=== PATIENT | female | born 1995 | race African-American/Black ===

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

== ENCOUNTER 2017-03-19 16:12 | Emergency (ER) | payer OTHER ==
[~2017-03-19] VITALS: Ht 165.1 cm; Wt 100.8 kg
[~2017-03-19 16:12] MED LIST changes: +IBUPROFEN600 MG PO; -PRE-NATAL PO
[2017-03-19] MEDS ORDERED: PRE-NATAL PO (16:34)
[2017-03-19] MEDS ORDERED: DEBROX6.5 % AS (16:38)
[2017-03-19] MEDS ORDERED: CIPROFLOXACN750 MG PO (16:38)
[2017-03-19 16:40] VITALS: BP 119/72
== END 2017-03-19 16:40 | disposition home or self-care (01) | DRG 156 ==
LOC: ED 16:12
DX: H61.22 Impacted cerumen, left ear (principal); H92.02 Otalgia, left ear

== ENCOUNTER 2017-03-26 12:00 | Emergency (ER) | payer OTHER ==
[~2017-03-26] VITALS: Ht 165.1 cm; Wt 102.2 kg
[~2017-03-26 12:00] MED LIST changes: +CIPROFLOXACN750 MG PO; +DEBROX6.5 % AS; +PRE-NATAL PO
[2017-03-26] MEDS ORDERED: FIORICET PO (13:19)
[2017-03-26] MEDS ORDERED: ZOFRAN ODT4 MG PO (13:19)
[2017-03-26 13:46] VITALS: BP 116/66
== END 2017-03-26 13:57 | disposition home or self-care (01) | DRG 103 ==
LOC: ED 12:00
DX: G43.909 Migraine, unspecified, not intractable, without status migrainosus (principal); R11.0 Nausea

== ENCOUNTER 2017-05-28 20:23 | Emergency (ER) | payer OTHER ==
[~2017-05-28] VITALS: Ht 165.1 cm; Wt 106.4 kg
[~2017-05-28 20:23] MED LIST changes: +FIORICET PO; +ZOFRAN ODT4 MG PO
[2017-05-28 22:03] LABS: URINE BILIRUBIN - DIPSTICK NEGATIVE (NEGATIVE); URINE BLOOD DIPSTICK NEGATIVE (NEGATIVE); URINE CLARITY CLEAR; URINE COLOR YELLOW; URINE GLUCOSE - DIPSTICK NEGATIVE (NEGATIVE); URINE KETONE NEGATIVE (NEGATIVE); URINE LEUK ESTERASE NEGATIVE (NEGATIVE); URINE NITRITE - DIPSTICK NEGATIVE (Negative); URINE PROTEIN - DIPSTICK NEGATIVE (NEG-TRACE); URINE SPECIFIC GRAVITY 1.025; URINE UROBILINOGEN - DIPSTICK 0.2 E.U./dL (0.2)
[2017-05-28 22:05] LABS: HEMATOCRIT 40.5 % (37.0-47.0); IMMATURE GRANULOCYTES 1.1 % (0.0-1.0); MEAN CELL VOLUME 87.9 fL CALC (80.0-100.0); MEAN CORPUSCULAR HGB 28.2 pG CALC (26.0-32.0); MEAN CORPUSCULAR HGB CONC 32.1 g/L CALC (32.0-36.0); NEUT# 2.26 thou/uL (2.00-7.15); RED BLOOD COUNT 4.61 mill/uL (4.20-5.60); RED CELL DISTRI WIDTH 12.4 % (11.5-15.5)
[2017-05-28 22:10] LABS: ALKALINE PHOSPHATASE 110 u/l (38-126); AMYLASE 57 u/l (30-110); ANION GAP 13 (6-22 (CALC)); BILIRUBIN, TOTAL 0.7 mg/dL (0.0-1.4); BUN 6 mg/dL (7-17); BUN/CREATININE RATIO 8 (12-20 (CALC)); CALCIUM 9.6 mg/dL (8.4-10.2); CARBON DIOXIDE 28 mmol/l (22-30); CHLORIDE 106 mmol/l (95-108); CREATININE 0.7 mg/dL (0.5-1.0); GFR > 60 ML/MIN (>=60 (CALC)); GFR FOR AFR.AMER. > 60 ML/MIN (>=60 (CALC)); GLUCOSE 101 mg/dL (65-105); LIPASE 58 u/l (23-300); SGOT/AST 32 u/l (14-36); SGPT/ALT 42 u/l (9-52); SODIUM 143 mmol/l (137-146); TOTAL PROTEIN 7.2 g/dL (6.3-8.2)
[2017-05-29 00:43] VITALS: BP 133/72
--- NOTE | 2017-05-30 13:22 | NUR ---
Review of vaginal smear from 05/28/17 final showed many G+ cocci in pairs/chains/clusters, no G-diplococci, no N. gonorrhoeae isolated, no trichomonas seen either. Pt presented to ED on 05/28/17 with cc of abdominal pain. Clinical impression: vaginal discharge. Pt received Cipro 500mg PO x 1 dose and Rocephin 500mg IV x 1 dose. Pt was not discharged with any abx. No changes in abx tx needed at this time.
== END 2017-05-29 00:43 | disposition home or self-care (01) | DRG 760 ==
LOC: ED 20:23
PROVIDERS: Emergency Medicine
DX: N89.8 Other specified noninflammatory disorders of vagina (principal); K62.5 Hemorrhage of anus and rectum; R50.9 Fever, unspecified; R10.31 Right lower quadrant pain; R11.2 Nausea with vomiting, unspecified; K59.00 Constipation, unspecified; R30.0 Dysuria

== ENCOUNTER 2017-06-10 21:37 | Emergency (ER) | payer OTHER ==
[~2017-06-10] VITALS: Ht 165.1 cm; Wt 106.2 kg
[2017-06-10 22:34] LABS: URINE BILIRUBIN - DIPSTICK NEGATIVE (NEGATIVE); URINE BLOOD DIPSTICK LARGE (NEGATIVE); URINE COLOR YELLOW; URINE GLUCOSE - DIPSTICK NEGATIVE (NEGATIVE); URINE KETONE NEGATIVE (NEGATIVE); URINE LEUK ESTERASE NEGATIVE (NEGATIVE); URINE NITRITE - DIPSTICK NEGATIVE (Negative); URINE PH 6.5 (4.5-8.0); URINE PROTEIN - DIPSTICK NEGATIVE (NEG-TRACE); URINE SPECIFIC GRAVITY 1.025; URINE UROBILINOGEN - DIPSTICK 0.2 E.U./dL (0.2)
[2017-06-10 22:54] LABS: URINE CLARITY SLIGHT CLOUDY
[2017-06-10 22:56] LABS: URINE MUCUS MODERATE hpf (NONE-FEW); URINE RBC >100 RBC/hpf (0-5); URINE SQUAMOUS EPITHELIAL CELL FEW EPI/hpf (0-FEW); URINE WBC 0-2 WBC/hpf (0-5)
[2017-06-10 22:57] LABS: HEMATOCRIT 38.6 % (37.0-47.0); HEMOGLOBIN 12.3 g/dl (12.0-16.0); IMMATURE GRANULOCYTES 0.3 % (0.0-1.0); MEAN CELL VOLUME 87.1 fL CALC (80.0-100.0); MEAN CORPUSCULAR HGB 27.8 pG CALC (26.0-32.0); MEAN CORPUSCULAR HGB CONC 31.9 g/L CALC (32.0-36.0); NEUT# 2.11 thou/uL (2.00-7.15); RED BLOOD COUNT 4.43 mill/uL (4.20-5.60); RED CELL DISTRI WIDTH 12.4 % (11.5-15.5)
[2017-06-10 23:11] LABS: ALBUMIN 4.1 g/dL (3.2-5.0); ALKALINE PHOSPHATASE 96 u/l (38-126); ANION GAP 16 (6-22 (CALC)); BILIRUBIN, TOTAL 0.5 mg/dL (0.0-1.4); BUN 6 mg/dL (7-17); BUN/CREATININE RATIO 8 (12-20 (CALC)); CALCIUM 9.4 mg/dL (8.4-10.2); CARBON DIOXIDE 26 mmol/l (22-30); CHLORIDE 106 mmol/l (95-108); CREATININE 0.7 mg/dL (0.5-1.0); GFR > 60 ML/MIN (>=60 (CALC)); GFR FOR AFR.AMER. > 60 ML/MIN (>=60 (CALC)); GLUCOSE 99 mg/dL (65-105); POTASSIUM 3.8 mmol/l (3.5-5.1); SGOT/AST 24 u/l (14-36); SGPT/ALT 34 u/l (9-52); SODIUM 144 mmol/l (137-146); TOTAL PROTEIN 7.3 g/dL (6.3-8.2)
[2017-06-10 23:22] LABS: MYOGLOBIN 24 ng/mL (0 - 62)
[2017-06-11 01:03] VITALS: BP 116/58
== END 2017-06-11 01:03 | disposition home or self-care (01) | DRG 313 ==
LOC: ED 21:37
PROVIDERS: Emergency Medicine
DX: R07.89 Other chest pain (principal); D70.9 Neutropenia, unspecified

== ENCOUNTER 2017-08-11 15:55 | Emergency (ER) | payer OTHER ==
[~2017-08-11] VITALS: Ht 165.1 cm; Wt 114.0 kg
[2017-08-11] MEDS ORDERED: VALACYCLOVIR500 MG PO (16:57)
[2017-08-11 17:54] VITALS: BP 117/74
== END 2017-08-11 17:54 | disposition home or self-care (01) | DRG 761 ==
LOC: ED 15:55
DX: N89.8 Other specified noninflammatory disorders of vagina (principal)

== ENCOUNTER 2017-10-12 16:31 | Emergency (ER) | payer OTHER ==
[~2017-10-12] VITALS: Ht 165.1 cm; Wt 109.0 kg
[~2017-10-12 16:31] MED LIST changes: +VALACYCLOVIR500 MG PO
[2017-10-12 17:09] LABS: URINE BILIRUBIN - DIPSTICK NEGATIVE (NEGATIVE); URINE BLOOD DIPSTICK NEGATIVE (NEGATIVE); URINE COLOR YELLOW; URINE GLUCOSE - DIPSTICK NEGATIVE (NEGATIVE); URINE KETONE NEGATIVE (NEGATIVE); URINE LEUK ESTERASE NEGATIVE (Negative); URINE NITRITE - DIPSTICK NEGATIVE (Negative); URINE PROTEIN - DIPSTICK NEGATIVE (NEG-TRACE); URINE UROBILINOGEN - DIPSTICK 0.2 E.U./dL (0.2)
[2017-10-12 17:10] LABS: URINE CLARITY CLEAR
[2017-10-12] MEDS ORDERED: LEVAQUIN500 MG PO (17:36)
[2017-10-12] MEDS ORDERED: PYRIDIUM200 MG PO (17:36)
[2017-10-12 17:42] VITALS: BP 142/80
== END 2017-10-12 17:40 | disposition home or self-care (01) | DRG 203 ==
LOC: ED 16:31
PROVIDERS: Emergency Medicine
DX: J40 Bronchitis, not specified as acute or chronic (principal); N34.2 Other urethritis; R50.9 Fever, unspecified; R05 Cough; R30.0 Dysuria; R10.9 Unspecified abdominal pain

== ENCOUNTER 2017-11-12 22:08 | Emergency (ER) | payer OTHER ==
[~2017-11-12] VITALS: Ht 165.1 cm; Wt 106.8 kg
[~2017-11-12 22:08] MED LIST changes: +LEVAQUIN500 MG PO; +PYRIDIUM200 MG PO
[2017-11-12 23:02] LABS: HEMATOCRIT 37.9 % (37.0-47.0); HEMOGLOBIN 12.2 g/dl (12.0-16.0); IMMATURE GRANULOCYTES 0.5 % (0.0-1.0); MEAN CELL VOLUME 87.9 fL CALC (80.0-100.0); MEAN CORPUSCULAR HGB 28.3 pG CALC (26.0-32.0); MEAN CORPUSCULAR HGB CONC 32.2 g/L CALC (32.0-36.0); NEUT# 3.98 thou/uL (2.00-7.15); RED BLOOD COUNT 4.31 mill/uL (4.20-5.60); RED CELL DISTRI WIDTH 12.6 % (11.5-15.5)
[2017-11-12 23:14] LABS: ANION GAP 16 (6-22 (CALC)); BUN 10 mg/dL (7-17); BUN/CREATININE RATIO 12 (12-20 (CALC)); CARBON DIOXIDE 27 mmol/l (22-30); CHLORIDE 104 mmol/l (95-108); CREATININE 0.8 mg/dL (0.5-1.0); GFR > 60 ML/MIN (>=60 (CALC)); GFR FOR AFR.AMER. > 60 ML/MIN (>=60 (CALC)); POTASSIUM 3.6 mmol/l (3.5-5.1); SODIUM 144 mmol/l (137-146)
[2017-11-12 23:27] LABS: URINE BILIRUBIN - DIPSTICK NEGATIVE (NEGATIVE); URINE BLOOD DIPSTICK LARGE (NEGATIVE); URINE COLOR YELLOW; URINE GLUCOSE - DIPSTICK NEGATIVE (NEGATIVE); URINE KETONE NEGATIVE (NEGATIVE); URINE LEUK ESTERASE NEGATIVE (NEGATIVE); URINE NITRITE - DIPSTICK NEGATIVE (Negative); URINE PH 6.5 (4.5-8.0); URINE PROTEIN - DIPSTICK NEGATIVE (NEG-TRACE); URINE SPECIFIC GRAVITY 1.025; URINE UROBILINOGEN - DIPSTICK 0.2 E.U./dL (0.2)
[2017-11-12 23:28] LABS: URINE CLARITY SL CLOUDY
[2017-11-12 23:33] LABS: URINE BACTERIA FEW hpf; URINE MUCUS FEW hpf (NONE-FEW); URINE RBC 50-100 RBC/hpf (0-5); URINE SQUAMOUS EPITHELIAL CELL FEW EPI/hpf (0-FEW)
[2017-11-13 01:57] VITALS: BP 129/80
== END 2017-11-13 02:33 | disposition home or self-care (01) | DRG 103 ==
LOC: ED 22:08
PROVIDERS: Family Medicine
DX: G43.909 Migraine, unspecified, not intractable, without status migrainosus (principal)

== ENCOUNTER 2018-01-14 23:45 | Emergency (ER) | payer SELFPAY ==
[~2018-01-14] VITALS: Ht 165.1 cm; Wt 260.0 kg
[2018-01-15 00:11] LABS: HEMATOCRIT 38.5 % (37.0-47.0); HEMOGLOBIN 12.2 g/dl (12.0-16.0); IMMATURE GRANULOCYTES 0.5 % (0.0-1.0); MEAN CELL VOLUME 88.3 fL CALC (80.0-100.0); MEAN CORPUSCULAR HGB CONC 31.7 g/L CALC (32.0-36.0); NEUT# 2.95 thou/uL (2.00-7.15); RED BLOOD COUNT 4.36 mill/uL (4.20-5.60); RED CELL DISTRI WIDTH 12.8 % (11.5-15.5)
[2018-01-15 00:21] LABS: ALBUMIN 4.2 g/dL (3.2-5.0); ALKALINE PHOSPHATASE 102 u/l (38-126); ANION GAP 12 (6-22 (CALC)); BILIRUBIN, TOTAL 0.4 mg/dL (0.0-1.4); BUN 5 mg/dL (7-17); BUN/CREATININE RATIO 7 (12-20 (CALC)); CARBON DIOXIDE 27 mmol/l (22-30); CHLORIDE 103 mmol/l (95-108); CREATININE 0.7 mg/dL (0.5-1.0); GFR > 60 ML/MIN (>=60 (CALC)); GFR FOR AFR.AMER. > 60 ML/MIN (>=60 (CALC)); POTASSIUM 3.8 mmol/l (3.5-5.1); SGOT/AST 31 u/l (14-36); SGPT/ALT 43 u/l (9-52); SODIUM 139 mmol/l (137-146)
[2018-01-15 00:37] LABS: BETA-HCG, QUANT(RESULT NUMBER) 1709 mIU/mL
[2018-01-15 00:41] LABS: URINE BILIRUBIN - DIPSTICK NEGATIVE (NEGATIVE); URINE BLOOD DIPSTICK LARGE (NEGATIVE); URINE COLOR RED; URINE GLUCOSE - DIPSTICK NEGATIVE (NEGATIVE); URINE KETONE NEGATIVE (NEGATIVE); URINE LEUK ESTERASE TRACE (NEGATIVE); URINE NITRITE - DIPSTICK NEGATIVE (Negative); URINE PH 6.5 (4.5-8.0); URINE PROTEIN - DIPSTICK 30 mg/dL (NEG-TRACE); URINE UROBILINOGEN - DIPSTICK 0.2 E.U./dL (0.2)
[2018-01-15 00:45] LABS: URINE CLARITY TURBID
[2018-01-15 00:54] LABS: URINE RBC TNTC RBC/hpf (0-5)
[2018-01-15 00:55] LABS: URINE BACTERIA RARE hpf; URINE SQUAMOUS EPITHELIAL CELL FEW EPI/hpf (0-FEW); URINE WBC 0-2 WBC/hpf (0-5)
[2018-01-15 01:22] VITALS: BP 118/70
== END 2018-01-15 00:11 | disposition home or self-care (01) | DRG 778 ==
LOC: ED 23:45
PROVIDERS: Emergency Medicine
DX: O20.0 Threatened abortion (principal); Z3A.01 Less than 8 weeks gestation of pregnancy

== ENCOUNTER 2018-08-21 12:31 | Emergency (ER) | payer SELFPAY ==
[~2018-08-21] VITALS: Ht 165.1 cm; Wt 110.5 kg
[2018-08-21 13:29] LABS: URINE BILIRUBIN - DIPSTICK NEGATIVE (NEGATIVE); URINE BLOOD DIPSTICK NEGATIVE (NEGATIVE); URINE COLOR YELLOW; URINE GLUCOSE - DIPSTICK NEGATIVE (NEGATIVE); URINE KETONE NEGATIVE (NEGATIVE); URINE NITRITE - DIPSTICK NEGATIVE (Negative); URINE PROTEIN - DIPSTICK NEGATIVE (NEG-TRACE); URINE SPECIFIC GRAVITY 1.025; URINE UROBILINOGEN - DIPSTICK 0.2 E.U./dL (0.2)
[2018-08-21 13:34] LABS: URINE LEUK ESTERASE SMALL (NEGATIVE)
[2018-08-21 13:35] LABS: URINE BACTERIA FEW hpf; URINE EPITHELIAL CELLS MODERATE EPI/hpf (0-FEW)
[2018-08-21] MEDS ORDERED: DOXYCYC MONO100 M1 PO (14:17)
[2018-08-21] MEDS ORDERED: CLEOCIN300 MG PO (14:17)
[2018-08-21 14:30] VITALS: BP 133/86
== END 2018-08-21 15:00 | disposition home or self-care (01) | DRG 758 ==
LOC: ED 12:31
DX: N76.0 Acute vaginitis (principal); N39.0 Urinary tract infection, site not specified

== ENCOUNTER 2018-09-20 22:45 | Emergency (ER) | payer OTHER ==
[~2018-09-20] VITALS: Ht 165.1 cm; Wt 111.4 kg
[~2018-09-20 22:45] MED LIST changes: +CLEOCIN300 MG PO; +DOXYCYC MONO100 M1 PO
[2018-09-20 23:56] LABS: URINE BILIRUBIN - DIPSTICK NEGATIVE (NEGATIVE); URINE BLOOD DIPSTICK SMALL (NEGATIVE); URINE COLOR YELLOW; URINE GLUCOSE - DIPSTICK NEGATIVE (NEGATIVE); URINE KETONE TRACE mg/dL (NEGATIVE); URINE LEUK ESTERASE TRACE (NEGATIVE); URINE NITRITE - DIPSTICK NEGATIVE (Negative); URINE PROTEIN - DIPSTICK TRACE mg/dL (NEG-TRACE); URINE UROBILINOGEN - DIPSTICK 0.2 E.U./dL (0.2)
[2018-09-21 00:04] LABS: URINE BACTERIA FEW hpf; URINE SQUAMOUS EPITHELIAL CELL MANY EPI/hpf (0-FEW)
[2018-09-21] MEDS ORDERED: DIFLUCAN150 MG PO (00:16)
[2018-09-21 00:37] VITALS: BP 139/83
== END 2018-09-21 00:37 | disposition home or self-care (01) ==
LOC: ED 22:45
PROVIDERS: Family Medicine
DX: B37.3 Candidiasis of vulva and vagina (principal); R30.0 Dysuria; R35.0 Frequency of micturition

== ENCOUNTER 2019-04-21 22:48 | Emergency (ER) | payer OTHER ==
[~2019-04-21] VITALS: Ht 165.1 cm; Wt 113.6 kg
[~2019-04-21 22:48] MED LIST changes: +DIFLUCAN150 MG PO
[2019-04-22 00:33] LABS: URINE BILIRUBIN - DIPSTICK NEGATIVE (NEGATIVE); URINE BLOOD DIPSTICK NEGATIVE (NEGATIVE); URINE COLOR YELLOW; URINE GLUCOSE - DIPSTICK NEGATIVE (NEGATIVE); URINE KETONE TRACE mg/dL (NEGATIVE); URINE LEUK ESTERASE NEGATIVE (NEGATIVE); URINE NITRITE - DIPSTICK NEGATIVE (Negative); URINE PH 6.5 (4.5-8.0); URINE PROTEIN - DIPSTICK TRACE mg/dL (NEG-TRACE)
[2019-04-22 01:38] LABS: HEMATOCRIT 36.4 % (37.0-47.0); HEMOGLOBIN 11.7 g/dl (12.0-16.0); IMMATURE GRANULOCYTES 0.2 % (0.0-5.0); MEAN CELL VOLUME 85.4 fL CALC (80.0-100.0); MEAN CORPUSCULAR HGB 27.5 pG CALC (26.0-32.0); MEAN CORPUSCULAR HGB CONC 32.1 g/L CALC (32.0-36.0); NEUT# 2.85 thou/uL (2.00-7.15); RED BLOOD COUNT 4.26 mill/uL (4.20-5.60); RED CELL DISTRI WIDTH 12.5 % (11.5-15.5)
[2019-04-22 01:57] LABS: ALBUMIN 4.2 g/dL (3.2-5.0); ALKALINE PHOSPHATASE 108 u/l (38-126); ANION GAP 14 (6-22 (CALC)); BUN 14 mg/dL (7-17); BUN/CREATININE RATIO 18 (12-20 (CALC)); CARBON DIOXIDE 25 mmol/l (22-30); CHLORIDE 104 mmol/l (95-108); CREATININE 0.7 mg/dL (0.5-1.0); GFR > 60 ML/MIN (>=60 (CALC)); GFR FOR AFR.AMER. > 60 ML/MIN (>=60 (CALC)); POTASSIUM 4.5 mmol/l (3.5-5.1); SGOT/AST 27 u/l (14-36); SODIUM 139 mmol/l (137-146); TOTAL PROTEIN 7.5 g/dL (6.3-8.2)
[2019-04-22 02:02] LABS: BILIRUBIN, TOTAL 0.6 mg/dL (0.0-1.4)
[2019-04-22] MEDS ORDERED: CIPROFLOXACN500 MG PO (03:01)
[2019-04-22 03:45] VITALS: BP 140/89
== END 2019-04-22 03:45 | disposition home or self-care (01) ==
LOC: ED 22:48
PROVIDERS: Emergency Medicine
DX: N34.2 Other urethritis (principal); R10.30 Lower abdominal pain, unspecified

== ENCOUNTER 2019-07-29 | Emergency (ER) | payer OTHER ==
[~2019-07-29] MED LIST changes: +CIPROFLOXACN500 MG PO
[2019-07-29 21:48] LABS: HEMATOCRIT 38.2 % (37.0-47.0); HEMOGLOBIN 12.2 g/dl (12.0-16.0); IMMATURE GRANULOCYTES 0.4 % (0.0-5.0); MEAN CELL VOLUME 86.8 fL CALC (80.0-100.0); MEAN CORPUSCULAR HGB 27.7 pG CALC (26.0-32.0); MEAN CORPUSCULAR HGB CONC 31.9 g/L CALC (32.0-36.0); NEUT# 2.78 thou/uL (2.00-7.15); RED BLOOD COUNT 4.4 mill/uL (4.20-5.60); RED CELL DISTRI WIDTH 12.5 % (11.5-15.5)
[2019-07-29 21:55] LABS: BARBITURATES NEGATIVE (NEGATIVE); COCAINE NEGATIVE (NEGATIVE); METHADONE NEGATIVE (NEGATIVE); OXCYCODONE NEGATIVE (NEGATIVE); TETRAHYDROCANNABIONOL NEGATIVE (NEGATIVE); TRICYLIC ANTIDEPRESSANTS NEGATIVE (NEGATIVE)
[2019-07-29 22:01] LABS: ALBUMIN 4.2 g/dL (3.2-5.0); ALKALINE PHOSPHATASE 109 u/l (38-126); ANION GAP 13 (6-22 (CALC)); BILIRUBIN, TOTAL 0.4 mg/dL (0.0-1.4); BUN 7 mg/dL (7-17); BUN/CREATININE RATIO 10 (12-20 (CALC)); CARBON DIOXIDE 28 mmol/l (22-30); CHLORIDE 104 mmol/l (95-108); CREATININE 0.7 mg/dL (0.5-1.0); ETHYL ALCOHOL 0 mg/dl (0-30); GFR > 60 ML/MIN (>=60 (CALC)); GFR FOR AFR.AMER. > 60 ML/MIN (>=60 (CALC)); POTASSIUM 3.7 mmol/l (3.5-5.1); SGOT/AST 24 u/l (14-36); SODIUM 141 mmol/l (137-146); TOTAL PROTEIN 7.8 g/dL (6.3-8.2)
== END 2019-07-29 22:40 | disposition home or self-care (01) ==
PROVIDERS: Emergency Medicine
DX: G40.909 Epilepsy, unspecified, not intractable, without status epilepticus (principal)

== ENCOUNTER 2019-08-11 | Emergency (ER) | payer OTHER ==
[2019-08-11] MEDS ORDERED: KEPPRA750 M2 PO (04:39)
[2019-08-11 05:12] LABS: HEMATOCRIT 37.9 % (37.0-47.0); HEMOGLOBIN 11.9 g/dl (12.0-16.0); IMMATURE GRANULOCYTES 0.9 % (0.0-5.0); MEAN CELL VOLUME 87.5 fL CALC (80.0-100.0); MEAN CORPUSCULAR HGB 27.5 pG CALC (26.0-32.0); MEAN CORPUSCULAR HGB CONC 31.4 g/L CALC (32.0-36.0); NEUT# 3.06 thou/uL (2.00-7.15); RED BLOOD COUNT 4.33 mill/uL (4.20-5.60); RED CELL DISTRI WIDTH 12.7 % (11.5-15.5)
[2019-08-11 05:15] LABS: URINE BILIRUBIN - DIPSTICK NEGATIVE (NEGATIVE); URINE BLOOD DIPSTICK NEGATIVE (NEGATIVE); URINE COLOR YELLOW; URINE GLUCOSE - DIPSTICK NEGATIVE (NEGATIVE); URINE KETONE NEGATIVE (NEGATIVE); URINE NITRITE - DIPSTICK NEGATIVE (Negative); URINE PROTEIN - DIPSTICK TRACE mg/dL (NEG-TRACE); URINE SPECIFIC GRAVITY 1.015; URINE UROBILINOGEN - DIPSTICK 0.2 E.U./dL (0.2)
[2019-08-11 05:20] LABS: URINE LEUK ESTERASE TRACE (NEGATIVE)
[2019-08-11 05:23] LABS: ALBUMIN 4.2 g/dL (3.2-5.0); ALKALINE PHOSPHATASE 115 u/l (38-126); ANION GAP 13 (6-22 (CALC)); BILIRUBIN, TOTAL 0.4 mg/dL (0.0-1.4); BUN 9 mg/dL (7-17); BUN/CREATININE RATIO 11 (12-20 (CALC)); CARBON DIOXIDE 25 mmol/l (22-30); CHLORIDE 105 mmol/l (95-108); CREATININE 0.8 mg/dL (0.5-1.0); GFR > 60 ML/MIN (>=60 (CALC)); GFR FOR AFR.AMER. > 60 ML/MIN (>=60 (CALC)); LIPASE 56 u/l (23-300); POTASSIUM 3.8 mmol/l (3.5-5.1); SGOT/AST 21 u/l (14-36); SODIUM 140 mmol/l (137-146); TOTAL PROTEIN 7.9 g/dL (6.3-8.2)
[2019-08-11] MEDS ORDERED: AMOXICILLIN500 MG PO (06:09)
== END 2019-08-11 06:30 | disposition home or self-care (01) ==
DX: J02.0 Streptococcal pharyngitis (principal); R07.9 Chest pain, unspecified

== ENCOUNTER 2019-08-17 | Emergency (ER) | payer OTHER ==
[~2019-08-17] MED LIST changes: +AMOXICILLIN500 MG PO; +KEPPRA750 M2 PO
[2019-08-17 23:31] LABS: HEMATOCRIT 37.8 % (37.0-47.0); HEMOGLOBIN 11.9 g/dl (12.0-16.0); IMMATURE GRANULOCYTES 0.8 % (0.0-5.0); MEAN CELL VOLUME 86.9 fL CALC (80.0-100.0); MEAN CORPUSCULAR HGB 27.4 pG CALC (26.0-32.0); MEAN CORPUSCULAR HGB CONC 31.5 g/L CALC (32.0-36.0); NEUT# 2.89 thou/uL (2.00-7.15); RED BLOOD COUNT 4.35 mill/uL (4.20-5.60); RED CELL DISTRI WIDTH 12.6 % (11.5-15.5)
[2019-08-17 23:45] LABS: URINE BILIRUBIN - DIPSTICK NEGATIVE (NEGATIVE); URINE COLOR YELLOW; URINE GLUCOSE - DIPSTICK NEGATIVE (NEGATIVE); URINE KETONE NEGATIVE (NEGATIVE); URINE NITRITE - DIPSTICK NEGATIVE (Negative); URINE PH 7.5 (4.5-8.0); URINE PROTEIN - DIPSTICK NEGATIVE (NEG-TRACE); URINE SPECIFIC GRAVITY 1.015; URINE UROBILINOGEN - DIPSTICK 0.2 E.U./dL (0.2)
[2019-08-17 23:51] LABS: URINE BLOOD DIPSTICK NEGATIVE (NEGATIVE); URINE LEUK ESTERASE MODERATE (NEGATIVE)
[2019-08-17 23:53] LABS: ALBUMIN 3.6 g/dL (3.2-5.0); ALKALINE PHOSPHATASE 112 u/l (38-126); ANION GAP 11 (6-22 (CALC)); BILIRUBIN, TOTAL 0.5 mg/dL (0.0-1.4); BUN 3 mg/dL (7-17); BUN/CREATININE RATIO 5 (12-20 (CALC)); CARBON DIOXIDE 24 mmol/l (22-30); CHLORIDE 106 mmol/l (95-108); CREATININE 0.7 mg/dL (0.5-1.0); GFR > 60 ML/MIN (>=60 (CALC)); GFR FOR AFR.AMER. > 60 ML/MIN (>=60 (CALC)); POTASSIUM 3.7 mmol/l (3.5-5.1); SGOT/AST 22 u/l (14-36); SODIUM 137 mmol/l (137-146); TOTAL PROTEIN 6.9 g/dL (6.3-8.2); URINE BACTERIA MODERATE hpf; URINE EPITHELIAL CELLS FEW EPI/hpf (0-FEW)
[2019-08-17 23:57] LABS: BARBITURATES NEGATIVE (NEGATIVE); COCAINE NEGATIVE (NEGATIVE); METHADONE NEGATIVE (NEGATIVE); OXCYCODONE NEGATIVE (NEGATIVE); TETRAHYDROCANNABIONOL NEGATIVE (NEGATIVE); TRICYLIC ANTIDEPRESSANTS NEGATIVE (NEGATIVE)
[2019-08-18] MEDS ORDERED: CIPROFLOXACN500 MG PO (01:05)
== END 2019-08-18 01:18 | disposition home or self-care (01) ==
PROVIDERS: Emergency Medicine
DX: G40.909 Epilepsy, unspecified, not intractable, without status epilepticus (principal); N39.0 Urinary tract infection, site not specified

== ENCOUNTER 2019-12-05 | Emergency (ER) | payer OTHER ==
[2019-12-05 15:50] LABS: HEMATOCRIT 35.5 % (37.0-47.0); HEMOGLOBIN 11.2 g/dl (12.0-16.0); IMMATURE GRANULOCYTES 0.4 % (0.0-5.0); MEAN CORPUSCULAR HGB 27.1 pG CALC (26.0-32.0); MEAN CORPUSCULAR HGB CONC 31.5 g/dL CAL (32.0-36.0); NEUT# 2.87 thou/uL (2.00-7.15); RED BLOOD COUNT 4.13 mill/uL (4.20-5.60); RED CELL DISTRI WIDTH 12.6 % (11.5-15.5)
[2019-12-05 16:12] LABS: ANION GAP 10 (6-22 (CALC)); BUN 5 mg/dL (7-17); BUN/CREATININE RATIO 7 (12-20 (CALC)); CARBON DIOXIDE 25 mmol/l (22-30); CHLORIDE 105 mmol/l (95-108); CREATININE 0.7 mg/dL (0.5-1.0); GFR > 60 ML/MIN (>=60 (CALC)); GFR FOR AFR.AMER. > 60 ML/MIN (>=60 (CALC)); POTASSIUM 3.4 mmol/l (3.5-5.1); SODIUM 137 mmol/l (137-146)
== END 2019-12-05 17:33 | disposition home or self-care (01) ==
PROVIDERS: Family Medicine
DX: O46.90 Antepartum hemorrhage, unspecified, unspecified trimester (principal); Z3A.00 Weeks of gestation of pregnancy not specified

== ENCOUNTER 2019-12-14 | Emergency (ER) | payer OTHER ==
[2019-12-14 18:43] LABS: HEMATOCRIT 36.6 % (37.0-47.0); HEMOGLOBIN 11.8 g/dl (12.0-16.0); IMMATURE GRANULOCYTES 0.6 % (0.0-5.0); MEAN CELL VOLUME 84.3 fL CALC (80.0-100.0); MEAN CORPUSCULAR HGB 27.2 pG CALC (26.0-32.0); MEAN CORPUSCULAR HGB CONC 32.2 g/dL CAL (32.0-36.0); NEUT# 3.08 thou/uL (2.00-7.15); RED BLOOD COUNT 4.34 mill/uL (4.20-5.60); RED CELL DISTRI WIDTH 12.4 % (11.5-15.5)
[2019-12-14 18:46] LABS: URINE BILIRUBIN - DIPSTICK NEGATIVE (NEGATIVE); URINE BLOOD DIPSTICK NEGATIVE (NEGATIVE); URINE COLOR YELLOW; URINE GLUCOSE - DIPSTICK NEGATIVE (NEGATIVE); URINE KETONE NEGATIVE (NEGATIVE); URINE LEUK ESTERASE NEGATIVE (NEGATIVE); URINE NITRITE - DIPSTICK NEGATIVE (Negative); URINE PH 6.5 (4.5-8.0); URINE PROTEIN - DIPSTICK NEGATIVE (NEG-TRACE); URINE UROBILINOGEN - DIPSTICK 0.2 E.U./dL (0.2)
[2019-12-14 18:58] LABS: ALKALINE PHOSPHATASE 113 u/l (38-126); ANION GAP 13 (6-22 (CALC)); BILIRUBIN, TOTAL 0.6 mg/dL (0.0-1.4); BUN 5 mg/dL (7-17); BUN/CREATININE RATIO 8 (12-20 (CALC)); CARBON DIOXIDE 23 mmol/l (22-30); CHLORIDE 104 mmol/l (95-108); CREATININE 0.7 mg/dL (0.5-1.0); GFR > 60 ML/MIN (>=60 (CALC)); GFR FOR AFR.AMER. > 60 ML/MIN (>=60 (CALC)); LIPASE 56 u/l (23-300); POTASSIUM 3.8 mmol/l (3.5-5.1); SGOT/AST 26 u/l (14-36); SODIUM 136 mmol/l (137-146); TOTAL PROTEIN 7.7 g/dL (6.3-8.2)
[2019-12-14 19:05] LABS: ALBUMIN 4.4 g/dL (3.2-5.0)
[2019-12-14 19:15] LABS: BETA-HCG, QUANT(RESULT NUMBER) 1528 mIU/mL
== END 2019-12-14 22:12 | disposition home or self-care (01) ==
PROVIDERS: Family Medicine
DX: O20.0 Threatened abortion (principal); Z3A.00 Weeks of gestation of pregnancy not specified

== ENCOUNTER 2019-12-15 | Emergency (ER) | payer OTHER ==
[2019-12-15 08:33] LABS: HEMATOCRIT 38.4 % (37.0-47.0); HEMOGLOBIN 12.1 g/dl (12.0-16.0); IMMATURE GRANULOCYTES 0.7 % (0.0-5.0); MEAN CELL VOLUME 87.3 fL CALC (80.0-100.0); MEAN CORPUSCULAR HGB 27.5 pG CALC (26.0-32.0); MEAN CORPUSCULAR HGB CONC 31.5 g/dL CAL (32.0-36.0); NEUT# 3.01 thou/uL (2.00-7.15); RED BLOOD COUNT 4.4 mill/uL (4.20-5.60); RED CELL DISTRI WIDTH 12.6 % (11.5-15.5); URINE BILIRUBIN - DIPSTICK NEGATIVE (NEGATIVE); URINE BLOOD DIPSTICK LARGE (NEGATIVE); URINE COLOR YELLOW; URINE GLUCOSE - DIPSTICK NEGATIVE (NEGATIVE); URINE KETONE NEGATIVE (NEGATIVE); URINE LEUK ESTERASE NEGATIVE (NEGATIVE); URINE NITRITE - DIPSTICK NEGATIVE (Negative); URINE PROTEIN - DIPSTICK NEGATIVE (NEG-TRACE); URINE SPECIFIC GRAVITY >=1.030; URINE UROBILINOGEN - DIPSTICK 0.2 E.U./dL (0.2)
[2019-12-15 08:52] LABS: URINE SQUAMOUS EPITHELIAL CELL FEW EPI/hpf (0-FEW)
[2019-12-15 09:03] LABS: ALBUMIN 4.2 g/dL (3.2-5.0); ALKALINE PHOSPHATASE 113 u/l (38-126); ANION GAP 13 (6-22 (CALC)); BILIRUBIN, TOTAL 0.6 mg/dL (0.0-1.4); BUN 8 mg/dL (7-17); BUN/CREATININE RATIO 10 (12-20 (CALC)); CARBON DIOXIDE 25 mmol/l (22-30); CHLORIDE 102 mmol/l (95-108); CREATININE 0.8 mg/dL (0.5-1.0); GFR > 60 ML/MIN (>=60 (CALC)); GFR FOR AFR.AMER. > 60 ML/MIN (>=60 (CALC)); LIPASE 65 u/l (23-300); POTASSIUM 3.8 mmol/l (3.5-5.1); SGOT/AST 26 u/l (14-36); SODIUM 136 mmol/l (137-146); TOTAL PROTEIN 7.5 g/dL (6.3-8.2)
[2019-12-15 09:20] LABS: BETA-HCG, QUANT(RESULT NUMBER) 1592 mIU/mL
== END 2019-12-15 11:21 | disposition home or self-care (01) ==
PROVIDERS: Family Medicine
DX: O26.891 Other specified pregnancy related conditions, first trimester (principal); R10.31 Right lower quadrant pain; Z3A.01 Less than 8 weeks gestation of pregnancy

== ENCOUNTER 2020-04-13 12:30 | Emergency (ER) | payer OTHER ==
[~2020-04-13] VITALS: Ht 165.1 cm; Wt 115.9 kg
[2020-04-13 15:06] LABS: URINE BILIRUBIN - DIPSTICK NEGATIVE (NEGATIVE); URINE BLOOD DIPSTICK NEGATIVE (NEGATIVE); URINE COLOR YELLOW; URINE GLUCOSE - DIPSTICK NEGATIVE (NEGATIVE); URINE KETONE NEGATIVE (NEGATIVE); URINE NITRITE - DIPSTICK NEGATIVE (Negative); URINE PROTEIN - DIPSTICK NEGATIVE (NEG-TRACE); URINE UROBILINOGEN - DIPSTICK 0.2 E.U./dL (0.2)
[2020-04-13 15:12] LABS: URINE LEUK ESTERASE SMALL (NEGATIVE)
[2020-04-13 15:21] LABS: URINE RBC 0-2 RBC/hpf (0-5); URINE SQUAMOUS EPITHELIAL CELL FEW EPI/hpf (0-FEW)
[2020-04-13] MEDS ORDERED: DOXYCYCL HYC100 M4 PO (16:14)
[2020-04-13 17:53] VITALS: BP 141/86
== END 2020-04-13 17:53 | disposition home or self-care (01) ==
LOC: ED 12:30
PROVIDERS: Student in an Organized Health Care Education/Training Program
DX: N39.0 Urinary tract infection, site not specified (principal); N89.8 Other specified noninflammatory disorders of vagina

== ENCOUNTER 2020-10-07 16:29 | Emergency (ER) | payer OTHER ==
[~2020-10-07] VITALS: Ht 165.1 cm; Wt 113.6 kg
[~2020-10-07 16:29] MED LIST changes: +DOXYCYCL HYC100 M4 PO
[2020-10-07] MEDS ORDERED: TOPIRAMATE100 MG PO (17:00)
[2020-10-07 17:08] LABS: URINE BILIRUBIN - DIPSTICK NEGATIVE (NEGATIVE); URINE BLOOD DIPSTICK NEGATIVE (NEGATIVE); URINE CLARITY CLEAR; URINE COLOR YELLOW; URINE GLUCOSE - DIPSTICK NEGATIVE (NEGATIVE); URINE KETONE NEGATIVE (NEGATIVE); URINE LEUK ESTERASE NEGATIVE (Negative); URINE NITRITE - DIPSTICK NEGATIVE (Negative); URINE PROTEIN - DIPSTICK NEGATIVE (NEG-TRACE); URINE SPECIFIC GRAVITY 1.025; URINE UROBILINOGEN - DIPSTICK 0.2 E.U./dL (0.2)
[2020-10-07] MEDS ORDERED: KEFLEX500 MG PO (17:41)
[2020-10-07] MEDS ORDERED: PYRIDIUM200 MG PO (17:42)
[2020-10-07 17:57] VITALS: BP 154/78
== END 2020-10-07 18:09 | disposition home or self-care (01) ==
LOC: ED 16:29
PROVIDERS: Emergency Medicine
DX: R30.0 Dysuria (principal); G40.909 Epilepsy, unspecified, not intractable, without status epilepticus; Z87.440 Personal history of urinary (tract) infections

== ENCOUNTER 2020-10-09 16:46 | Emergency (ER) | payer OTHER ==
[~2020-10-09 16:46] MED LIST changes: +TOPIRAMATE100 MG PO
== END 2020-10-09 17:35 | disposition left against medical advice (07) ==
LOC: ED 16:46 → LWOBS 17:34
DX: Z91.19 Patient's noncompliance with other medical treatment and regimen (principal)

== ENCOUNTER 2020-10-15 08:00 | Emergency (ER) | payer OTHER ==
[~2020-10-15] VITALS: Ht 165.1 cm; Wt 115.0 kg
[2020-10-15 08:28] LABS: HEMATOCRIT 37.2 % (37.0-47.0); HEMOGLOBIN 11.6 g/dl (12.0-16.0); IMMATURE GRANULOCYTES 0.5 % (0.0-5.0); MEAN CELL VOLUME 87.1 fL CALC (80.0-100.0); MEAN CORPUSCULAR HGB 27.2 pG CALC (26.0-32.0); MEAN CORPUSCULAR HGB CONC 31.2 g/dL CAL (32.0-36.0); NEUT# 3.66 thou/uL (2.00-7.15); RED BLOOD COUNT 4.27 mill/uL (4.20-5.60); RED CELL DISTRI WIDTH 12.3 % (11.5-15.5)
[2020-10-15 08:45] LABS: ANION GAP 10 (6-22 (CALC)); BUN 10 mg/dL (7-17); BUN/CREATININE RATIO 13 (12-20 (CALC)); CARBON DIOXIDE 28 mmol/l (22-30); CHLORIDE 103 mmol/l (95-108); CREATININE 0.8 mg/dL (0.5-1.0); GFR > 60 ML/MIN (>=60 (CALC)); GFR FOR AFR.AMER. > 60 ML/MIN (>=60 (CALC)); POTASSIUM 3.9 mmol/l (3.5-5.1); SODIUM 137 mmol/l (137-146)
[2020-10-15 13:04] VITALS: BP 96/58
== END 2020-10-15 13:11 | disposition home or self-care (01) ==
LOC: ED 08:00
PROVIDERS: Family Medicine
DX: R07.9 Chest pain, unspecified (principal)

== ENCOUNTER 2021-01-05 06:34 | Emergency (ER) | payer OTHER ==
[~2021-01-05] VITALS: Ht 165.1 cm; Wt 115.5 kg
[2021-01-05] MEDS ORDERED: KEPPRA250 M1 PO (06:52)
[2021-01-05] MEDS ORDERED: KEPPRA1000 MG PO (06:52)
[2021-01-05 07:05] LABS: HEMATOCRIT 37.1 % (37.0-47.0); HEMOGLOBIN 11.6 g/dl (12.0-16.0); IMMATURE GRANULOCYTES 0.3 % (0.0-5.0); MEAN CELL VOLUME 86.9 fL CALC (80.0-100.0); MEAN CORPUSCULAR HGB 27.2 pG CALC (26.0-32.0); MEAN CORPUSCULAR HGB CONC 31.3 g/dL CAL (32.0-36.0); NEUT# 2.42 thou/uL (2.00-7.15); RED BLOOD COUNT 4.27 mill/uL (4.20-5.60); RED CELL DISTRI WIDTH 12.8 % (11.5-15.5)
[2021-01-05 07:13] LABS: ALBUMIN 4.2 g/dL (3.2-5.0); ALKALINE PHOSPHATASE 118 u/l (38-126); ANION GAP 11 (6-22 (CALC)); BILIRUBIN, TOTAL 0.6 mg/dL (0.0-1.4); BUN 10 mg/dL (7-17); BUN/CREATININE RATIO 12 (12-20 (CALC)); CARBON DIOXIDE 27 mmol/l (22-30); CHLORIDE 105 mmol/l (95-108); CREATININE 0.8 mg/dL (0.5-1.0); GFR > 60 ML/MIN (>=60 (CALC)); GFR FOR AFR.AMER. > 60 ML/MIN (>=60 (CALC)); POTASSIUM 3.6 mmol/l (3.5-5.1); SGOT/AST 24 u/l (14-36); SODIUM 139 mmol/l (137-146)
[2021-01-05 08:04] LABS: URINE BILIRUBIN - DIPSTICK NEGATIVE (NEGATIVE); URINE BLOOD DIPSTICK LARGE (NEGATIVE); URINE COLOR YELLOW; URINE GLUCOSE - DIPSTICK NEGATIVE (NEGATIVE); URINE KETONE NEGATIVE (NEGATIVE); URINE LEUK ESTERASE TRACE (NEGATIVE); URINE NITRITE - DIPSTICK NEGATIVE (Negative); URINE PROTEIN - DIPSTICK 30 mg/dL (NEG-TRACE)
[2021-01-05 08:17] LABS: URINE BACTERIA FEW hpf; URINE MUCUS FEW hpf (NONE-FEW); URINE SQUAMOUS EPITHELIAL CELL MODERATE EPI/hpf (0-FEW)
[2021-01-05] MEDS ORDERED: FIORICET PO (10:23)
[2021-01-05 10:40] VITALS: BP 133/79
== END 2021-01-05 10:36 | disposition home or self-care (01) ==
LOC: ED 06:34
PROVIDERS: Family Medicine
DX: R51.9 Headache, unspecified (principal); R01.1 Cardiac murmur, unspecified; I49.3 Ventricular premature depolarization
CPT/HCPCS: A9579

== ENCOUNTER 2021-01-08 22:15 | Observation (INO) | payer OTHER ==
[~2021-01-08] VITALS: Ht 162.6 cm; Wt 117.0 kg
[~2021-01-08 22:15] MED LIST changes: +KEPPRA1000 MG PO; +KEPPRA250 M1 PO
--- NOTE | 2021-01-08 22:19 | NUR ---
MOVED TO ROOM 14 FOR TRIAGE. PHYSICIAN IN ROOM UPON ARRIVAL .
--- NOTE | 2021-01-08 22:20 | NUR ---
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
[2021-01-08 22:57] LABS: HEMATOCRIT 37.8 % (37.0-47.0); HEMOGLOBIN 11.7 g/dl (12.0-16.0); IMMATURE GRANULOCYTES 0.6 % (0.0-5.0); MEAN CELL VOLUME 86.1 fL CALC (80.0-100.0); MEAN CORPUSCULAR HGB 26.7 pG CALC (26.0-32.0); NEUT# 2.6 thou/uL (2.00-7.15); RED BLOOD COUNT 4.39 mill/uL (4.20-5.60); RED CELL DISTRI WIDTH 12.7 % (11.5-15.5)
--- NOTE | 2021-01-08 23:04 | NUR ---
A/OX3 SPEECH IS CLEAR NO FOCAL DEFICITS.
[2021-01-08 23:16] LABS: ALKALINE PHOSPHATASE 98 u/l (38-126); ANION GAP 10 (6-22 (CALC)); BILIRUBIN, TOTAL 0.6 mg/dL (0.0-1.4); BUN 9 mg/dL (7-17); BUN/CREATININE RATIO 11 (12-20 (CALC)); CARBON DIOXIDE 27 mmol/l (22-30); CHLORIDE 104 mmol/l (95-108); CREATININE 0.8 mg/dL (0.5-1.0); ETHYL ALCOHOL 0 mg/dl (0-30); GFR > 60 ML/MIN (>=60 (CALC)); GFR FOR AFR.AMER. > 60 ML/MIN (>=60 (CALC)); LIPASE 61 u/l (23-300); POTASSIUM 3.7 mmol/l (3.5-5.1); SGOT/AST 19 u/l (14-36); SODIUM 137 mmol/l (137-146); TOTAL PROTEIN 7.6 g/dL (6.3-8.2)
[2021-01-08 23:20] LABS: URINE BILIRUBIN - DIPSTICK NEGATIVE (NEGATIVE); URINE BLOOD DIPSTICK NEGATIVE (NEGATIVE); URINE COLOR YELLOW; URINE GLUCOSE - DIPSTICK NEGATIVE (NEGATIVE); URINE KETONE NEGATIVE (NEGATIVE); URINE LEUK ESTERASE NEGATIVE (NEGATIVE); URINE PH 6.5 (4.5-8.0); URINE PROTEIN - DIPSTICK NEGATIVE (NEG-TRACE); URINE UROBILINOGEN - DIPSTICK 0.2 E.U./dL (0.2)
[2021-01-08 23:25] LABS: HCG SERUM/URINE (NEG/POS) NEGATIVE (NEGATIVE); URINE NITRITE - DIPSTICK NEGATIVE (Negative)
--- NOTE | 2021-01-08 23:29 | NUR ---
PT TAKES PO WATER WITH MED WITHOUT DIFF SWALLOWING
[2021-01-08 23:32] LABS: ACT PARTIAL THROMBO TIME 25.9 SECONDS (20.0-32.5); INTERNATIONAL NORMALIZED RATIO 1.1 RATIO (0.7-1.3)
[2021-01-08] MEDS ORDERED: CLEOCIN300 MG PO (23:33)
--- NOTE | 2021-01-08 23:36 | NUR ---
PT DID NOT TKE TODAY'S DOSES OF KEPPRA
--- NOTE | 2021-01-09 00:39 | NUR ---
A/OX3 CLEARE SPEECH NO FOCAL DEFICITS.PHONE REPORT TO NURSE KELLEN ON MS
--- NOTE | 2021-01-09 00:45 | NUR ---
PT TRANSPORTED TO [place] ON TELEMETRY VIA STRETCHER IN STABLE ONNDITIO WITH CLEAR SPEECH AND NO FOCAL DEFICITS
[2021-01-09 00:49] VITALS: BP 124/82
--- NOTE | 2021-01-09 01:41 | NUR ---
RECEIVED REPORT FROM NURSE AG, PATIENT TRANSPORTED BY WHEELCHAIR AT 0050, PATIENT WALKED WITH STEADY GAIT FROM BED TO BATHROOM AND BACK IN BED, NO SLURRING OFF SPEECH NOTED, ALERT ORIENTED X 3, ABLE TO CLOSE OPEN EYES, NO FACIAL DROOPING NOTED, ABLE TO FOLLOW COMMANDS, NO ARM OR LEG DRIFTS NOTED, SALINE LOCK OF RAC G 20 FLUSHED AND CHECKED FOR PATENCY, HOOKED ON TELEMETRY SR 66, LBM 6/7, C/O PAIN ON FLANK AREA AND LOWER ABDOMEN TOLERABLE, PATIENT HAS HISTORY OF SEIZURE BED PADDED, PATIENT ORIENTED TO ROOM AND CALL LIGHT SYSTEM.
--- NOTE | 2021-01-09 03:38 | NUR ---
PATIENT AWAKE AT THIS TIME, WATCHING TV, ALERT ORIENTED X 3, BREATHING UNLABORED, CALL LIGHT AT REACH.
[2021-01-09 04:00] VITALS: BP 131/87
[2021-01-09 07:47] VITALS: BP 153/93
--- NOTE | 2021-01-09 07:47 | NUR ---
PT AMBULATING BACK FROM BATHROOM. STADY GAIT OBSERVED. A&O X4. NO DISTRESS NOTED. CLEAR BREATH SOUNDS HEARD UPON AUSCULTATION. 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 ACTIVE BOWEL SOUNDS HEARD X4 QUADRANTS. PT C/O OF PAIN ON TOP OF HEAD, STATES IT HAS BEEN ONGOING FOR A "COUPLE DAYS" THAT RADIATES TO HER NECK. SPEECH CLEAR, PT ALSO STATES HER EPISODE OF REPORTED "SLURRED" SPEECH HAS RESOLVED. NO FACIAL DROOP NOTED. 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 PT ABLE TO MOVE EXTREMITIES WITH NO DIFFICULTY. INFORMED/EDUCATED ON THE NEED OF ORDERED MRI, PT AGREEABLE. #20 RAC HEALTHY AND PATENT. ASSESSMENT COMPLETED. DISCUSSED POC. CALL LIGHT AND PERSONAL BELONGINGS WITHIN REACH.
[2021-01-09 10:57] VITALS: BP 128/83
--- NOTE | 2021-01-09 12:21 | NUR ---
PT LAYING IN BED. ORDER OBTAINED FOR TYLENOL PRN FOR PAIN, PT OFFERED MEDICATION FOR HEADACHE BUT PT REFUSED AT THIS TIME. PT ALSO REFUSING KEPPRA, EXPLAINED TO THE PT ITS IMPORTANCE PER PT "I WILL TAKE IT WHEN I GET HOME". CLINDAMYCIN GIVEN. VAGINAL SWAB TO BE OBTAINED. CONSENT OBTAINED TO OBTAIN RECORDS FROM [facility] AND FROM DR VILLATORO- [facility] NEUROLOGIST. NO OTHER NEEDS AT THIS TIME. CALL LIGHT WITHIN REACH .
--- NOTE | 2021-01-09 13:06 | NUR ---
PT TAKEN TO MRI VIA WC IN STABLE CONDITION
--- NOTE | 2021-01-09 14:16 | NUR ---
PT ARRIVED VIA WC FROM MRI IN STABLE CONDITION.
[2021-01-09 14:55] VITALS: BP 129/81
--- NOTE | 2021-01-09 17:19 | NUR ---
VAGINAL CULTURE SWAB SAMPLE OBTAINED TO TEST FOR BV (PTS CONCERN). SPECIMEN LABELED, DATED, AND TIMED.
--- NOTE | 2021-01-09 18:06 | NUR ---
PT C/O PAIN. ORDER OBTAINED FOR TRAMADOL. TRAMADOL GIVEN. WILL REASSESS. CALL LIGHT WITHIN REACH.
[2021-01-09 19:00] VITALS: BP 128/70
--- NOTE | 2021-01-09 19:43 | NUR ---
PATIENT RESTING IN BED AT THIS TIME WITH SHEETS UP OVER HER FACE. PATIENT AWAKE ALERT AND ORIENTEDX3. PATIENT STATES THAT HER PAIN LEVEL IS NOW 4 AFTER BEING MEDICATED WITH ULTRAM FOR HEADACHE. SIDERAILS ARE PADDED FOR SEIZURE PRECAUTIONS. NO COMPLAINTS AT THIS TIME. SAFETY PRECAUTIONS REINFORCED. CALL LIGHT IN REACH. WILL CONT TO MONITOR.
--- NOTE | 2021-01-09 20:28 | NUR ---
PATIENT RESTING IN BED AT THIS TIME-REFUSING TO TAKE KEPPRA ORDERED. PATIENT WAS EDUCATED REGUARDING THE USE OF ANTI-SEIZURE MEDS IN PATIENT WITH KNOWN HISTORY OF SEIZURES. STATES THAT SHE IS NOT GOING TO TAKE THE KEPPRA TONIGHT THAT SHE WILL TAKE WHEN SHE GOES HOME. MEND EXAM WAS WNL. TELE MONITOR IN PLACE WITH LAST READING BEING SR-73. LUNGS ARE CLEAR. ABD IS SOFT WITH ACTIVE BS-STATES THAT SHE JUST HAD A BM TONIGHT. DENIES ANY DIFFICULTY WITH URINATION. SIDERAILS PADDED FOR SEIZURE PRECAUTIONS. SAFETY PRECAUTIONS REINFORCED. CALL LIGHT IN REACH. WILL CONT TO MONITOR.
--- NOTE | 2021-01-09 21:00 | NUR ---
SPOKE WITH DR. BLUM AND NOTIFIED THAT PATIENT IS REFUSING TO TAKE HER KEPPRA TONIGHT WELL EALLIER TODAY. PATIENT STATES THAT SHE WOULD LIKE TO BE DISCHARGED TONIGHT. DR. BLUM WILL PUT DISCHARGE ORDERS IN FOR TONIGHT. PATIENT MADE AWARE OF DISCHARGE TONIGHT.
--- NOTE | 2021-01-09 21:45 | NUR ---
IV SITE D/C'ED WITH CATH INTACT. TELE MONITOR REMOVED AND RETURNED TO THE ER. PATIENT DISCHARGE INSTRUCTIONS GIVEN.
--- NOTE | 2021-01-09 21:57 | NUR ---
Discharge instructions given. Patient verbalizes understanding of same. Discharged in stable condition via Wheelchair to Home with family. All belongings sent with pt.
--- NOTE | 2021-01-11 11:09 | NUR ---
NEW RX FOR AMOX 875 PO BID X5 CALLED IN TO [facility] FOR E FAECALIS GENITAL CX SENSITIVE TO AMPICILLIN PER DR BLUM. PT AWARE.
--- NOTE | 2021-01-11 12:48 | NUR ---
PT CALLED ME BACK, SAID SHE WAS FEELING VERY ILL ON CLINDAMYCIN AND EXPERIENCING DIARRHEA, METALLIC TASTE, "BURNING FROM INSIDE", JUST OVERALL NOT FEELING WELL. CLINDAMYCIN HAD BEEN PRESCRIBED AT [facility] ER, AND PT WAS INSTRUCTED TO CONTINUE AT DISCHARGE FROM [facility]. DISCUSSED THIS WITH DR BLUM, PT HAS HAD 6 DAYS CLINDAMYCIN AND THE AMOX WILL COVER GENITAL CX RESULTS. PER DR BLUM, OK FOR PT TO D/C CLINDAMYCIN, TAKE AMOX INSTEAD, ADD PROBIOTICS, AND CHECK FOR CDIFF IF DIARRHEA DOESNT IMPROVE. EXPLAINED TO PT, VERBALIZED UNDERSTANDING.
== END 2021-01-09 21:50 | disposition home or self-care (01) ==
LOC: ED 22:15 → ED-I 01-09 00:04 → ED 01-09 00:25 → MS2 01-09 00:26
PROVIDERS: ADMIT Internal Medicine; ATTEND Internal Medicine
DX: G40.909 Epilepsy, unspecified, not intractable, without status epilepticus (principal); N76.0 Acute vaginitis; T42.6X6A Underdosing of other antiepileptic and sedative-hypnotic drugs, initial encounter; Z91.128 Patient's intentional underdosing of medication regimen for other reason; Z88.8 Allergy status to other drugs, medicaments and biological substances; Z20.822 Contact with and (suspected) exposure to COVID-19
CPT/HCPCS: A9579; G0378; J1953; Q9967

== ENCOUNTER 2021-01-31 22:44 | Emergency (ER) | payer OTHER ==
[~2021-01-31] VITALS: Ht 162.6 cm; Wt 111.0 kg
[2021-01-31 23:20] LABS: HEMATOCRIT 39.1 % (37.0-47.0); HEMOGLOBIN 12.2 g/dl (12.0-16.0); IMMATURE GRANULOCYTES 0.4 % (0.0-5.0); MEAN CELL VOLUME 86.7 fL CALC (80.0-100.0); MEAN CORPUSCULAR HGB 27.1 pG CALC (26.0-32.0); MEAN CORPUSCULAR HGB CONC 31.2 g/dL CAL (32.0-36.0); NEUT# 2.84 thou/uL (2.00-7.15); RED BLOOD COUNT 4.51 mill/uL (4.20-5.60); RED CELL DISTRI WIDTH 12.6 % (11.5-15.5)
[2021-01-31 23:36] LABS: ALKALINE PHOSPHATASE 86 u/l (38-126); ANION GAP 12 (6-22 (CALC)); BILIRUBIN, TOTAL 0.5 mg/dL (0.0-1.4); BUN 8 mg/dL (7-17); BUN/CREATININE RATIO 9 (12-20 (CALC)); CARBON DIOXIDE 28 mmol/l (22-30); CHLORIDE 104 mmol/l (95-108); CREATININE 0.9 mg/dL (0.5-1.0); GFR > 60 ML/MIN (>=60 (CALC)); GFR FOR AFR.AMER. > 60 ML/MIN (>=60 (CALC)); POTASSIUM 3.8 mmol/l (3.5-5.1); SGOT/AST 23 u/l (14-36); SODIUM 141 mmol/l (137-146); TOTAL PROTEIN 7.3 g/dL (6.3-8.2)
[2021-02-01 00:45] VITALS: BP 110/58
== END 2021-02-01 00:45 | disposition home or self-care (01) ==
LOC: ED 22:44
PROVIDERS: Family Medicine
DX: R20.0 Anesthesia of skin (principal); F41.9 Anxiety disorder, unspecified

== ENCOUNTER 2021-02-19 08:54 | Emergency (ER) | payer OTHER ==
[~2021-02-19] VITALS: Ht 162.6 cm; Wt 115.9 kg
[2021-02-19 10:20] LABS: URINE BILIRUBIN - DIPSTICK NEGATIVE (NEGATIVE); URINE BLOOD DIPSTICK NEGATIVE (NEGATIVE); URINE COLOR YELLOW; URINE GLUCOSE - DIPSTICK NEGATIVE (NEGATIVE); URINE KETONE NEGATIVE (NEGATIVE); URINE LEUK ESTERASE TRACE (NEGATIVE); URINE PH 7.5 (4.5-8.0); URINE PROTEIN - DIPSTICK NEGATIVE (NEG-TRACE); URINE UROBILINOGEN - DIPSTICK 0.2 E.U./dL (0.2)
[2021-02-19 10:21] LABS: URINE NITRITE - DIPSTICK NEGATIVE (Negative)
[2021-02-19 10:22] LABS: HEMATOCRIT 36.7 % (37.0-47.0); HEMOGLOBIN 11.6 g/dl (12.0-16.0); IMMATURE GRANULOCYTES 0.3 % (0.0-5.0); MEAN CELL VOLUME 86.2 fL CALC (80.0-100.0); MEAN CORPUSCULAR HGB 27.2 pG CALC (26.0-32.0); MEAN CORPUSCULAR HGB CONC 31.6 g/dL CAL (32.0-36.0); NEUT# 3.23 thou/uL (2.00-7.15); RED BLOOD COUNT 4.26 mill/uL (4.20-5.60); RED CELL DISTRI WIDTH 12.5 % (11.5-15.5)
[2021-02-19 10:40] LABS: ALKALINE PHOSPHATASE 105 u/l (38-126); AMYLASE 79 u/l (30-110); ANION GAP 14 (6-22 (CALC)); BILIRUBIN, TOTAL 0.3 mg/dL (0.0-1.4); BUN 7 mg/dL (7-17); BUN/CREATININE RATIO 10 (12-20 (CALC)); CARBON DIOXIDE 27 mmol/l (22-30); CHLORIDE 102 mmol/l (95-108); CREATININE 0.7 mg/dL (0.5-1.0); GFR > 60 ML/MIN (>=60 (CALC)); GFR FOR AFR.AMER. > 60 ML/MIN (>=60 (CALC)); LIPASE 69 u/l (23-300); POTASSIUM 3.7 mmol/l (3.5-5.1); SGOT/AST 19 u/l (14-36); SODIUM 140 mmol/l (137-146); TOTAL PROTEIN 7.4 g/dL (6.3-8.2)
[2021-02-19 14:15] VITALS: BP 125/76
== END 2021-02-19 14:25 | disposition home or self-care (01) ==
LOC: ED 08:54
PROVIDERS: Emergency Medicine
DX: R07.9 Chest pain, unspecified (principal); R00.1 Bradycardia, unspecified; I49.3 Ventricular premature depolarization; G40.909 Epilepsy, unspecified, not intractable, without status epilepticus; Z82.49 Family history of ischemic heart disease and other diseases of the circulatory system

== ENCOUNTER 2021-03-09 11:35 | Emergency (ER) | payer OTHER ==
[2021-03-09 13:12] LABS: HEMATOCRIT 37.7 % (37.0-47.0); HEMOGLOBIN 11.8 g/dl (12.0-16.0); IMMATURE GRANULOCYTES 0.2 % (0.0-5.0); MEAN CELL VOLUME 86.5 fL CALC (80.0-100.0); MEAN CORPUSCULAR HGB 27.1 pG CALC (26.0-32.0); MEAN CORPUSCULAR HGB CONC 31.3 g/dL CAL (32.0-36.0); NEUT# 2.44 thou/uL (2.00-7.15); RED BLOOD COUNT 4.36 mill/uL (4.20-5.60); RED CELL DISTRI WIDTH 12.3 % (11.5-15.5)
[2021-03-09 13:22] LABS: ALKALINE PHOSPHATASE 90 u/l (38-126); AMYLASE 70 u/l (30-110); ANION GAP 11 (6-22 (CALC)); BUN 7 mg/dL (7-17); BUN/CREATININE RATIO 8 (12-20 (CALC)); CARBON DIOXIDE 26 mmol/l (22-30); CHLORIDE 103 mmol/l (95-108); CREATININE 0.8 mg/dL (0.5-1.0); GFR > 60 ML/MIN (>=60 (CALC)); GFR FOR AFR.AMER. > 60 ML/MIN (>=60 (CALC)); LIPASE 36 u/l (23-300); POTASSIUM 3.6 mmol/l (3.5-5.1); SGOT/AST 22 u/l (14-36); SODIUM 136 mmol/l (137-146); TOTAL PROTEIN 7.5 g/dL (6.3-8.2)
[2021-03-09 13:23] LABS: BILIRUBIN, TOTAL 0.7 mg/dL (0.0-1.4)
[2021-03-09 13:24] LABS: URINE BILIRUBIN - DIPSTICK NEGATIVE (NEGATIVE); URINE BLOOD DIPSTICK NEGATIVE (NEGATIVE); URINE COLOR YELLOW; URINE GLUCOSE - DIPSTICK NEGATIVE (NEGATIVE); URINE KETONE NEGATIVE (NEGATIVE); URINE LEUK ESTERASE NEGATIVE (NEGATIVE); URINE PROTEIN - DIPSTICK NEGATIVE (NEG-TRACE); URINE SPECIFIC GRAVITY 1.025; URINE UROBILINOGEN - DIPSTICK 0.2 E.U./dL (0.2)
[2021-03-09] MEDS ORDERED: LEVETIRACETAM1000 MG PO (13:25)
[2021-03-09] MEDS ORDERED: ESCITALOPRAM OX10 MG PO (13:25)
[2021-03-09] MEDS ORDERED: TOPIRAMATE100 MG PO (13:26)
[2021-03-09] MEDS ORDERED: LEVETIRACETAM250 MG PO (13:26)
[2021-03-09 13:30] LABS: URINE NITRITE - DIPSTICK NEGATIVE (Negative)
[2021-03-09] MEDS ORDERED: ZOFRAN4 MG/TAB PO (13:47)
[2021-03-09 14:25] VITALS: BP 125/82
== END 2021-03-09 14:25 | disposition home or self-care (01) ==
LOC: ED 11:35
DX: R10.11 Right upper quadrant pain (principal)

== ENCOUNTER 2021-06-12 04:35 | Emergency (ER) | payer OTHER ==
[~2021-06-12] VITALS: Ht 154.9 cm; Wt 114.0 kg
[~2021-06-12 04:35] MED LIST changes: +ESCITALOPRAM OX10 MG PO; +LEVETIRACETAM1000 MG PO; +LEVETIRACETAM250 MG PO; +ZOFRAN4 MG/TAB PO
[2021-06-12 05:22] LABS: URINE BLOOD DIPSTICK NEGATIVE (NEGATIVE); URINE COLOR YELLOW; URINE GLUCOSE - DIPSTICK NEGATIVE (NEGATIVE); URINE KETONE TRACE mg/dL (NEGATIVE); URINE LEUK ESTERASE TRACE (NEGATIVE); URINE PH 6.5 (4.5-8.0); URINE PROTEIN - DIPSTICK TRACE mg/dL (NEG-TRACE); URINE SPECIFIC GRAVITY 1.025
[2021-06-12 05:25] LABS: URINE BILIRUBIN - DIPSTICK SMALL (NEGATIVE); URINE NITRITE - DIPSTICK NEGATIVE (Negative)
[2021-06-12 06:00] VITALS: BP 141/62
== END 2021-06-12 06:04 | disposition home or self-care (01) ==
LOC: ED 04:35
PROVIDERS: Family Medicine
DX: O99.891 Other specified diseases and conditions complicating pregnancy (principal); R30.0 Dysuria; R35.0 Frequency of micturition; Z3A.08 8 weeks gestation of pregnancy

== ENCOUNTER 2024-02-15 03:39 | Emergency (ER) | payer MEDICARE, OTHER ==
[~2024-02-15] VITALS: Ht 154.9 cm; Wt 75.0 kg
[~2024-02-15 03:39] MED LIST changes: +VIBRAMYCIN100 M2 PO
[2024-02-15 03:48] VITALS: BP 150/87
[2024-02-15 04:01] VITALS: BP 140/74
[2024-02-15 04:16] VITALS: BP 94/64
[2024-02-15 04:30] VITALS: BP 117/63
[2024-02-15] MEDS ORDERED: CORTISPORIN OTI10 ML AD (04:30)
[2024-02-15] MEDS ORDERED: NEOMYCIN-POLYMYXIN-HC OTIC SUSP. 10 ML BTL AD ONE (04:35)
[2024-02-15 04:53] VITALS: BP 117/63
== END 2024-02-15 05:09 | disposition home or self-care (01) ==
LOC: ED 03:39
PROC: 3E1B78Z Irrigation of Ear using Irrigating Substance, Via Natural or Artificial Opening (ICD-10-PCS; principal; 2024-02-15)
DX: H61.21 Impacted cerumen, right ear (principal); H60.91 Unspecified otitis externa, right ear; G40.909 Epilepsy, unspecified, not intractable, without status epilepticus

== ENCOUNTER 2024-02-17 08:27 | Emergency (ER) | payer MEDICARE, OTHER ==
[~2024-02-17] VITALS: Ht 154.9 cm; Wt 122.0 kg
[2024-02-17] VITALS (7 sets, daily range): BP systolic 120–131; BP diastolic 75–86
[~2024-02-17 08:27] MED LIST changes: +CORTISPORIN OTI10 ML AD
[2024-02-17] MEDS ORDERED: METOCLOPRAMIDE HCL 10 MG/2 ML SDV IV ONE (08:45)
[2024-02-17] MEDS ORDERED: DiphenhydrAMINE HCL 50 MG/ML SDV IV ONE (08:45)
[2024-02-17] MEDS ORDERED: KETOROLAC TROMETHAMINE 30 MG/ML SDV IV ONE (08:45)
[2024-02-17] MEDS ORDERED: SODIUM CHLORIDE 0.9% 1,000 ML IV ONE (08:50)
== END 2024-02-17 11:30 | disposition home or self-care (01) ==
LOC: ED 08:27
DX: R51.9 Headache, unspecified (principal); E66.01 Morbid (severe) obesity due to excess calories; G40.909 Epilepsy, unspecified, not intractable, without status epilepticus

== ENCOUNTER 2024-08-20 08:33 | Emergency (ER) | payer MEDICARE, OTHER ==
[~2024-08-20] VITALS: Ht 154.9 cm; Wt 108.8 kg
[2024-08-20 08:39] VITALS: BP 142/104
[2024-08-20] MEDS ORDERED: DIFLUCAN150 MG PO (08:52)
[2024-08-20 09:05] VITALS: BP 142/104
== END 2024-08-20 09:20 | disposition home or self-care (01) ==
LOC: ED 08:33
DX: N89.8 Other specified noninflammatory disorders of vagina (principal); G40.909 Epilepsy, unspecified, not intractable, without status epilepticus